=== PATIENT | female | born 1955 | race Caucasian/White ===

== ENCOUNTER 2017-11-04 16:29 | Emergency (ER) | payer OTHER, MEDICAID ==
[~2017-11-04] VITALS: Ht 157.5 cm; Wt 68.0 kg
[2017-11-04 16:53] VITALS: BP_SYST 130
--- NOTE | 2017-11-04 16:53 | NUR ---
Patient brought self in for left sided jaw pain denies any recent trauma. Pt states "I slept on couch last night, now its been hard to chew"
[2017-11-04] MEDS ORDERED: WARF4TAB68 GT (16:57)
--- NOTE | 2017-11-04 20:37 | NUR ---
Pt notified to front office clerk staff he will go home at this time , patient unable to wait to be seen. Pt Left without been seen on stable condition.
== END 2017-11-04 20:37 | disposition left against medical advice (07) ==
LOC: SED 16:29
DX: R68.84 Jaw pain (principal); Z53.21 Procedure and treatment not carried out due to patient leaving prior to being seen by health care provider